=== PATIENT | female | born 1995 | race Two or more races ===

== ENCOUNTER 2025-03-27 10:44 | Outpatient (CLI) | payer MEDICAID | END 2025-03-27 17:00 | disposition home or self-care (01) | LOC: LAB 10:44 | DX: N93.9 Abnormal uterine and vaginal bleeding, unspecified (principal) | CPT/HCPCS: 36415; 84702; 87086 ==

== ENCOUNTER 2025-05-06 11:14 | Emergency (ER) | payer MEDICAID ==
[~2025-05-06] VITALS: Ht 167.6 cm; Wt 68.0 kg
--- NOTE | 2025-05-06 13:29 | ED.PDOC ---
Xenat. trauma (HPI) HPI Comments HPI: Tyron 29 y.o female presents to the ED for a chief complaint of left posterior thigh and buttocks pain x last night s/p fall. Patient reports accidently stepping on water at home, slipped and landed in a split form, causing immediate thigh pain. Patient is only able to bear minimal weight on left leg, states pain worsens on pressure on movement. She denies any head injuries or any other symptoms at this time. Past Medical History: Kidney stones Past Surgical History: lithotripsy, tonsillectomy and x 2 Social History: Denies ETOH, smoking, and drug use. Allergies: Denies MONROE: HPI: Poor Historian. Denies any injury anywhere else in her body. Past Medical History: Past Surgical History: REVIEW OF SYSTEMS: CONSTITUTIONAL: Denies acute: fever, diaphoresis, chills, generalized weakness. HEAD: Denies acute: headache, photophobia Eyes: Denies acute: Double vision, vision loss, eye pain, eye discharge. EARS: Denies acute: tinnitus, hearing loss, ear discharge, ear pain, THROAT: Denies acute: sore throat, swelling, difficulty swallowing , pain with swallowing, change in voice. NECK: Denies acute: neck pain, neck swelling, stiff neck. HEART: Denies acute : chest pain, palpitations, LUNGS: Denies acute: SOB, wheezing, cough, hemoptysis ABDOMEN: Denies acute: abdominal pain, Nausea, Vomiting, diarrhea, melena , hematemesis, hematochezia SKIN: Denies acute: rash, redness, lesions, itchiness. EXTREMITIES: Denies acute: calf pain, numbness, tingling, weakness, Denies acute: Low back pain. Neuro: Denies acute: focal neurological deficit, motor or sensory focal neurological deficit, tremors, seizure like activity, confusion, dizziness, change in mental status, loss of bowel or bladder function, cauda equina like symptoms. : Denies acute: dysuria, hematuria, flank pain, increase in urinary frequency. PSYCH: Denies acute: hallucination, suicidal ideation, homicidal ideation. FEMALE: Denies acute: abnormal vaginal bleeding, foul odor, unusual discharge. PHYSICAL EXAM: General: -----mild---acute distress, awake and alert. Head: normocephalic, atraumatic. Neck: supple, trachea is midline, no swelling. Throat: Normal phonation. Eyes:, no erythema, no purulent discharge, no proptosis, no icterus. Heart: regular rate, regular rhythm, no significant murmur appreciated. Lungs: no apparent respiratory distress, Able to speak in full sentences. No wheezing, no rhonchi, no crackles. No stridors Clear to auscultation bilaterally. Abdomen: non tender to palpation, non distended, soft, no guarding, no rebound, + bowel sounds. Neuro: Awake, Alert, oriented to name, self, situation, follows commands GCS=15. Speech is normal. Skin: no petechia, no purpura, no cyanosis, non-pale, not jaundice. Lower extremities: --no - Pitting edema no deformity, no focal swelling, no calf TTP. Evaluation of the area of complaint: Posterior left thigh above the knee pain worse with extension of the left lower extremity when the muscle stretch. No apparent swelling. Patient is neurovascularly intact in the affected extremity. Pedal pulses palpable. Motor and sensory are present. Makes eye contact. moves all four extremities. Face: no apparent facial droop. Patient drove herself here to the ER today. Ambulating in the ED with pain Pedal pulses are palpable. ED COURSE: DISCLAIMER: This medical document was created using an electronic medical record system with voice recognition software and computerized dictation system. Although this document has been carefully reviewed, there might still be some phonetic and typographical errors. Occasional wrong-word or "sound-alike" substitutions may h ave occurred due to the inherent limitations of voice recognition software. These areas are purely typographical due to imperfections of the software programs and do not reflect any compromise in the patient's medical care. Please read the chart carefully and recognize, using context, where these substitutions have occurred. Chief Complaint: Lower Extremity Time Seen by MD: 13:14 Reviewed notes: Medications, Allergies Allergies: Coded Allergies: NO KNOWN ALLERGIES (Unverified , 05/06/25) Information Source: Patient Mode of Arrival: Ambulatory Past Medical History PAST MEDICAL HISTORY: Kidney Stones Surgical History (Other): lithotripsy OPTICAL INSTRUMENT ASSEMBLER History: No Pertinent OPTICAL INSTRUMENT ASSEMBLER History Family History Family History: Reviewed,noncontributory to illness, No family hx of Cancer, No family hx of DM, No family hx of Heart vanna, No family hx of HTN, No family hx ofKidney vanna, No family hx of Liver vanna, No family hx of Lung vanna, No family hx of Stroke Social History Smoker: Non-Smoker Alcohol: Denies ETOH Use Drugs: Denies Drug Use Lives In: Home Was a procedure done? Was a procedure done?: No Differential Diagnosis Multiple Trauma: Fractures, Contusion, Other (strain, sprain, muscle sprain ) X-Ray, Labs, Meds, VS Vital Signs Date Time Temp Pulse Resp B/P (MAP) Pulse Ox O2 Delivery O2 Flow Rate FiO2 05/06/25 11:26 98.1 82 18 138/93 97 98.1 [place] [address] Ph: [phone] DIAGNOSTIC IMAGING Diagnostic Imaging Report : [id number] Signed PATIENT: RAMONA MONROE AACCT: [id number] UNIT: [id number] : 1995 LOC: ER ROOM / BED: / AGE / SEX: 29 / F ADM STATUS: REG ER SERVICE [id number] ORDERING PHYSICIAN: ELSY AMBROSE DO PROCEDURE(s): LFT - CT L FEMUR WO CONTRAST REASON: POSSIBLE LEFT POST THIGH MUSCLE INJURY ORDER NUMBER(s): [id number], ACCESSION NUMBER(s): [id number] CLINICAL INDICATION: POSSIBLE LEFT POST THIGH MUSCLE INJURY TECHNIQUE: Noncontrast CT of the left femur was performed. Sagittal and coronal reformatted images are provided. COMPARISON: None CT Dose: CTDI volume is 8.41 mGy. Dose-length product is 3.33 mGy*cm FINDINGS: No fracture or dislocation. Joint spaces are maintained. Regional soft tissues are unremarkable. No hematoma. IMPRESSION: 1. No acute osseous abnormality. Please note that muscle injury may not be detected on CT and if clinically warranted, MRI of the thigh may be obtained for further evaluation. All CT scans at this medical facility are performed using dose modulation techniques as appropriate to a performed exam including the following: Automated exposure control was utilized; adjustment of the MA and/or KV according to pat ient size; and use of iterative reconstruction technique. ATED BY: ROS PRUITT MD DICTATED DATE/TIME: 05/06/251411 SIGNED BY: ROS PRUITT MD SIGNED DATE/TIME: 05/06/251411 CC: Time of 1ST Reevaluation: 13:24 Reevaluation 1ST: Unchanged Patient Education/Counseling: Diagnosis, Treatment Family Education/Counseling: No Family Present Departure 1 Departure Time of Disposition: 14:37 Impression: Primary Impression: Injury of musculoskeletal system Additional Impression: Left thigh pain Disposition: 01 HOME / SELF CARE / HOMELESS Condition: Stable Additional Instructions: Additional instructions: Please read all instructions provided in this packet carefully. You MUST follow-up with your primary care/family doctor in 1 to 2 days. If you are unable to see your primary care/family doctor, please return to our emergency room for re-assessment and re-evaluation in 1 to 2 days. Return to the emergency room here in our facility or to the nearest ER [facility] if your symptoms change or worsen. CONSULTATIONS: you MUST Follow-up for consultation as soon as possible with: orthopedic doctor in 1-2 days. Please call for appointment. You MUST call the consultants office yourself to make an appointment. You may need to arrange that through your insurance and/or your primary/family doctor. If you are unable to see the network security consultant in 1 to 2 days, you must return to our emergency room (or any other ER of your choice) for re-assessment and re- evaluation. Adequate fluid hydration. Although you have been discharged from the Emergency Department, this does not mean that you have a "clean bill of health". No definitive diagnosis for your symptoms has been made today. It is possible that you are in the process of developing a serious illness. This is why you must return to the ED without fail if any new or worsening symptoms develop. Below is a copy of your radiological report for follow up: [address] [address] Ph: [phone] DIAGNOSTIC IMAGING Diagnostic Imaging Report : [id number] Signed PATIENT: RAMONA MONROE ACCT: [id number] UNIT: [id number] : 1995 LOC: ER ROOM / BED: / AGE / SEX: 29 / F ADM STATUS: REG ER SERVICE 1316 ORDERING PHYSICIAN: ELSY AMBROSE DO [facility] REASON: POSSIBLE LEFT POST THIGH MUSCLE INJURY ORDER NUMBER(s): [id number], ACCESSION NUMBER(s): [id number] CLINICAL INDICATION: POSSIBLE LEFT POST THIGH MUSCLE INJURY TECHNIQUE: Noncontrast CT of the left femur was performed. Sagittal and coronal reformatted images are provided. COMPARISON: None CT Dose: CTDI volume is 8.41 mGy. Dose-length product is 3.33 mGy*cm FINDINGS: No fracture or dislocation. Joint spaces are maintained. Regional soft tissues are unremarkable. No hematoma. IMPRESSION: 1. No acute osseous abnormality. Please note that muscle injury may not be detected on CT and if clinically warranted, MRI of the thigh may be obtained for further evaluation. All CT scans at this medical facility are performed using dose modulation techniques as appropriate to a performed exam including the following: Automated exposure control was utilized; adjustment of the MA and/or KV according to patient size; and use of iterative reconstruction technique. ATED BY: ROS PRUITT MD DICTATED DATE/TIME: 05/06/25 141 SIGNED BY: ROS PRUITT MD SIGNED DATE/TIME: 05/06/25 141 CC: Discharged With: Self Critical Care Note Critical Care Time?: No I personally scribed for ELSY AMBROSE DO ([email or web address]) on 05/06/25 at 13:29. Electronically submitted by Rachel Ray ([facility]). ELSY AMBROSE DO May 06, 2025 13:29
--- NOTE | 2025-05-06 14:15 | DVH ---
CLINICAL INDICATION: POSSIBLE LEFT POST THIGH MUSCLE INJURY TECHNIQUE: Noncontrast CT of the left femur was performed. Sagittal and coronal reformatted images ar e provided. COMPARISON: None CT Dose: CTDI volume is 8.41 mGy. Dose-length product is 3.33 mGy*cm FINDINGS: No fracture or dislocation. Joint spaces are maintained. Regional soft tissues are unremark able. No hematoma. IMPRESSION: 1. No acute osseous abnormality. Please note that muscle injury may not be detected on CT and if clin ically warranted, MRI of the thigh may be obtained for further evaluation. All CT scans at this medical facility are performed using dose modulation techniques as appropriate t o a performed exam including the following: Automated exposure control was utilized; adjustment of th e MA and/or KV according to patient size; and use of iterative reconstruction technique.
[2025-05-06] MEDS: KETOROLAC TROMETH 60MG/2ML VIAL IM ONE (14:59)
[2025-05-06 15:00] VITALS: BP 132/77; PULSE 68; RESP 16; TEMP 97.9; O2SAT 100
== END 2025-05-06 15:01 | disposition home or self-care (01) ==
LOC: ER 11:15
DX: S39.092A Other injury of muscle, fascia and tendon of lower back, initial encounter (principal); M79.652 Pain in left thigh; Z90.89 Acquired absence of other organs; W01.0XXA Fall on same level from slipping, tripping and stumbling without subsequent striking against object, initial encounter; Y93.89 Activity, other specified; Y92.009 Unspecified place in unspecified non-institutional (private) residence as the place of occurrence of the external cause; Y99.8 Other external cause status
CPT/HCPCS: 73700; 96372; 99285; J1885